=== PATIENT | male | born 1960 | race Caucasian/White ===

== ENCOUNTER 2016-07-11 11:18 | Emergency (ER) | payer MEDICARE ==
[2016-07-11] MEDS ORDERED: Sodium Chloride 0.9% 10 ML Syringe FLUSH PRN (12:41)
[2016-07-11] MEDS ORDERED: Ketorolac 30 MG/ML SDV IVPUSH ONE (12:42)
[2016-07-11] MEDS ORDERED: Cyclobenzaprine 10 MG Tab PO ONE (12:43)
[2016-07-11] MEDS ORDERED: Ondansetron 4 MG/2 ML SDV IVPUSH ONE (12:43)
--- NOTE | 2016-07-11 12:51 | EDM.PDOC ---
ED HPI GENERAL MEDICAL PROBLEM - General Chief Complaint: Back Pain or Injury Stated Complaint: KIDNEY PAIN Time Seen by Provider: 07/11/16 12:30 Source of Information: Reports: Patient History Limitations: Reports: No limitations - History of Present Illness INITIAL COMMENTS - FREE TEXT/NARRATIVE: c/o back pain x 3h on disability for chronic back pain, states he takes no pain meds except gabapentin altho MPMP shows a fill of Dilaudid on 06-04-16 on gabapentin 300 mg tid x 2m, takes no other pain meds walked dog today, got home and sat down and had sharp pain in his R lower back, "never had a pain like that", "the worst pain I have ever had", took no meds for it says it feels like his a sharp knife is being pushed through his back without radiation, also with pain across his upper abd which he says feels like his pancreas has had appy, choly, and AAA repair here with s.o. back/stomach Pain Score (Numeric/FACES): 10 - Related Data Allergies Allergy/AdvReac Type Severity Reaction Status Date / Time chanix Allergy Seizure Uncoded 07/11/16 11:42 Home Meds: Home Meds ARIPiprazole [Abilify] 10 mg PO DAILY 07/11/16 [History] Gabapentin [Neurontin] 300 mg PO TID 07/11/16 [History] Gemfibrozil 600 mg PO BID 07/11/16 [History] Lisinopril/Hydrochlorothiazide [Lisinopril-Hctz 20-12.5 mg Tab] 1 tab PO DAILY 07/11/16 [History] Metoprolol Succinate 100 mg PO DAILY 07/11/16 [History] Omeprazole 20 mg PO DAILY 07/11/16 [History] PARoxetine HCl [Paroxetine HCl] 40 mg PO DAILY 07/11/16 [History] clonazePAM [Clonazepam] 1 mg PO TID 07/11/16 [History] Social & Family History - Tobacco Use Years of Tobacco use: 35 ED ROS GENERAL - Review of Systems Review Of Systems: See Below Constitutional: Reports: no symptoms HEENT: Reports: No symptoms Respiratory: Reports: no symptoms Cardiovascular: Reports: No symptoms Endocrine: Reports: no symptoms GI/Abdominal: Reports: Abdominal pain, Nausea : Reports: no symptoms Musculoskeletal: Reports: back pain Skin: Reports: no symptoms Neurological: Reports: no symptoms Psychiatric: Reports: No symptoms Hematologic/Lymphatic: Reports: no symptoms Immunologic: Reports: no symptoms ED EXAM, GENERAL - Physical Exam Exam: See Below Exam Limited By: No limitations General Appearance: alert, WD/WN, no apparent distress Nose: normal inspection Throat/Mouth: Normal inspection, Normal lips Head: atraumatic, normocephalic Neck: normal inspection, supple, non-tender, full range of motion Respiratory/Chest: no respiratory distress, lungs clear, normal breath sounds, no accessory muscle use, chest non-tender Cardiovascular: normal peripheral pulses, regular rate, rhythm, no edema, no gallop, no rub, other (2/6 ANGELO at LSB) GI/Abdominal: other (well healed scar in RLQ and vertical scar to L of umbilicus , nl BS x 4, soft, nonspecific tender across upper quadrants, NT elsewhere, no guard/rebound, back no CVAT, does have mild tender in the R lower mid back but not at iliac crest, back NT to percussion, no spasm, l-spine NT, SI joints NT, SLR 45 degrees b/l neg, 2+ DTRs patella) Neurological: alert, oriented, CN II-XII intact, normal cognition, normal reflexes, no motor/sensory deficits Psychiatric: normal affect, normal mood Skin Exam: Warm, Dry, Intact, Normal color, No rash Lymphatic: no adenopathy Course - Vital Signs Last Recorded V/S: Last Vital Signs Temp 36.6 C 07/11/16 11:30 Pulse 58 L 07/11/16 11:30 Resp 18 07/11/16 11:30 BP 163/100 H 07/11/16 11:30 Pulse Ox 96 07/11/16 11:30 - Orders/Labs/Meds Orders: Active Orders 24 hr Category Date Time Status Abdomen Pelvis w wo Cont [CT] Stat Exams 07/11/16 12:44 Taken LIPASE [REF] Stat Lab 07/11/16 12:45 Received Sodium Chloride 0.9% [Saline Flush] Med 07/11/16 12:41 Active 10 ml FLUSH ASDIRECTED PRN Saline Lock Insert [OM.PC] Routine Oth 07/11/16 12:41 Ordered Medication Orders Sodium Chloride (Saline Flush) 10 ml FLUSH ASDIRECTED PRN PRN Reason: Keep Vein Open Last Admin: 07/11/16 12:55 Dose: 10 ml Labs: Laboratory Tests 07/11/16 07/11/16 07/11/16 Range/Units 12:45 12:45 13:15 WBC 12.7 H (4.5-12.0) X10-3/uL RBC 5.49 (4.30-5.75) x10(6)uL Hgb 17.3 H (11.5-15.5) g/dL Hct 51.6 H (30.0-51.3) % MCV 93.9 (80-96) fL MCH 31.6 (27.7-33.6) pg MCHC 33.6 (32.2-35.4) g/dL RDW 13.6 (11.5-15.5) % Plt Count 183 (125-369) X10(3)uL MPV 7.8 (7.4-10.4) fL Neut % (Auto) 80.2 (46-82) % Lymph % (Auto) 14.5 (13-37) % Bull[place] % (Auto) 4.6 (4-12) % Eos % (Auto) 0 L (1.0-5.0) % Baso % (Auto) 0 (0-2) % Neut # 10.2 H (1.6-8.3) # Lymph # 1.8 (0.6-5.0) # Bullitt # 0.6 (0.0-1.3) # Eos # 0.1 (0.0-0.8) # Baso # 0.0 (0.0-0.2) # Sodium 136 (135-145) mmol/L Potassium 3.4 L (3.5-5.3) mmol/L Chloride 102 (100-110) mmol/L Carbon Dioxide 28 (23-29) mmol/L BUN 11 (5-20) mg/dL Creatinine 1.0 (0.6-1.3) mg/dL Est Cr Clr Drug Dosing TNP Estimated GFR (MDRD) > 60 (>60) BUN/Creatinine Ratio 11.0 (9-20) Glucose 123 H (80-116) mg/dL Calcium 9.1 (8.6-10.2) mg/dL Total Bilirubin 0.9 (0.1-1.3) mg/dL AST 19 (5-27) IU/L ALT 15 (14-26) IU/L Alkaline Phosphatase 74 (56-112) IU/L C-Reactive Protein 0.8 (0.0-1.0) mg/dL Total Protein 7.8 (6.0-8.0) g/dL Albumin 4.1 (3.5-5.2) g/dL Globulin 3.7 g/dL Albumin/Globulin Ratio 1.1 Amylase 50 (28-100) U/L Urine Color Yellow (YELLOW) Urine Appearance Clear (CLEAR) Urine pH 5.0 (5.0-6.5) Ur Specific [place] 1.020 (1.010-1.025) Urine Protein Negative (NEGATIVE) mg/dL Urine Glucose (UA) Normal (NEGATIVE) mg/dL Urine Ketones Negative (NEGATIVE) mg/dL Urine Occult Blood Negative (NEGATIVE) Urine Nitrite Negative (NEGATIVE) Urine Bilirubin Negative (NEGATIVE) Urine Urobilinogen Normal (NEGATIVE) mg/dL Ur Leukocyte Esterase Negative (NEGATIVE) Urine RBC 0-5 (0) Urine WBC 0-5 (0) Ur Squamous Epith Cells Rare (NS,R,O) Urine Bacteria Rare H (NS) Urine Mucus Moderate H (NS) Meds: Medications Generic Name Dose Route Start Last Admin Trade Name Freq PRN Reason Stop Dose Admin Sodium Chloride 10 ml 07/11/16 12:41 07/11/16 12:55 Saline Flush FLUSH 10 ml ASDIRECTED PRN Administration Keep Vein Open Discontinued Medications Generic Name Dose Route Start Last Admin Trade Name Freq PRN Reason Stop Dose Admin Cyclobenzaprine HCl 10 mg 07/11/16 12:43 07/11/16 12:50 Flexeril PO 07/11/16 12:44 10 mg ONETIME ONE Administration Iopamidol 100 ml 07/11/16 13:26 07/11/16 13:36 Isovue-370 (76%) IV 07/11/16 13:27 100 ml . DIRECTED ONE Administration Ketorolac Tromethamine 30 mg 07/11/16 12:42 07/11/16 13:00 Toradol IVPUSH 07/11/16 12:43 30 mg ONETIME ONE Administration Ondansetron HCl 4 mg 07/11/16 12:43 07/11/16 13:00 Zofran IVPUSH 07/11/16 12:44 4 mg ONETIME ONE Administration Potassium Chloride 40 meq 07/11/16 13:59 Klor-Con M20 PO 07/11/16 14:00 ONETIME ONE Departure - Departure Time of Disposition: 15:26 Disposition: Home, Self-Care 01 Condition: good Clinical Impression: Low back sprain Forms: ED Department Discharge Additional Instructions: Continue your gabapentin 300 mg 1 tab 3 times a day. Add ibuprofen 200 mg 3 tabs and acetaminophen 325 mg 2 tabs 4 times a day for 1 week. Use heat on your back for 15 minutes 3 times a day. Sleep on a firm mattress. See your doctor in 2 days to recheck your back and your blood pressure. Check your blood pressure 1-2 times a day in the meantime. Call your Physician or Return to Emergency Department if: * Your condition worsens in any way. * You develop fever greater than 100.4. * You have vomiting that does not stop with medications. * You have pain that is not controlled with medications. - My Orders Last 24 Hours: My Active Orders 07/11/16 12:41 Sodium Chloride 0.9% [Saline Flush] 10 ml FLUSH ASDIRECTED PRN Saline Lock Insert [OM.PC] Routine 07/11/16 12:44 Abdomen Pelvis w wo Cont [CT] Stat 07/11/16 12:45 LIPASE [REF] Stat - Assessment/Plan Last 24 Hours: My Active Orders 07/11/16 12:41 Sodium Chloride 0.9% [Saline Flush] 10 ml FLUSH ASDIRECTED PRN Saline Lock Insert [OM.PC] Routine 07/11/16 12:44 Abdomen Pelvis w wo Cont [CT] Stat 07/11/16 12:45 LIPASE [REF] Stat
[2016-07-11] MEDS ORDERED: Iopamidol 755 Mg/ML 100 ML Bottle IV ONE (13:26)
[2016-07-11] MEDS ORDERED: Potassium Chloride 20 MEQ Tab.ER PO ONE (13:59)
[2016-07-11 19:12] VITALS: BP 143/100
== END 2016-07-11 15:28 | disposition home or self-care (01) ==
LOC: FB.ED 11:18
DX: S33.5XXA Sprain of ligaments of lumbar spine, initial encounter (principal); X50.1XXA Overexertion from prolonged static or awkward postures, initial encounter; M54.9 Dorsalgia, unspecified; G89.29 Other chronic pain; F17.200 Nicotine dependence, unspecified, uncomplicated; Z88.8 Allergy status to other drugs, medicaments and biological substances; Z79.899 Other long term (current) drug therapy
CPT/HCPCS: 74178; 80053; 81001; 82150; 83690; 85025; 86140; 96374; 96375; 99284; A9270; J1885; J2405; J7050; Q9967; 36415

== ENCOUNTER 2017-07-31 21:24 | Emergency (ER) | payer MEDICARE ==
[2017-07-31 21:29] VITALS: BP 199/122
[2017-07-31] MEDS ORDERED: Sodium Chloride 0.9% 10 ML Syringe FLUSH PRN ×2 (21:32→22:10)
[2017-07-31] MEDS ORDERED: Morphine 4 MG/ML Syringe IVPUSH ONE ×2 (21:44→22:07)
[2017-07-31] MEDS ORDERED: Ondansetron 4 MG/2 ML SDV IVPUSH ONE (21:44)
[2017-07-31] MEDS ORDERED: Sodium Chloride 0.9% 1,000 ML IV STA (22:19)
--- NOTE | 2017-07-31 22:33 | EDM.PDOC ---
ED HPI GENERAL MEDICAL PROBLEM - General Chief Complaint: Abdominal Pain Stated Complaint: ABD PAIN Time Seen by Provider: 07/31/17 21:28 Source of Information: Reports: Patient, Family History Limitations: Reports: Other (abdominal pain) - History of Present Illness INITIAL COMMENTS - FREE TEXT/NARRATIVE: 57 y.o.w.m with h/o/ HTN. H/O AAA, CAD, came to the ed with his family by wheelchair due to acute onset of abd. pain with distension, with nause and vomiting X2 and diarrhea. AAA was repaired 07/2016 at [place]. No Trauma. Primary survey showed a 57 y.o.w.m with acute abddominal pain with distension. No BS were audible. A mass 15 cm at his LUQ of his Abd was was palpated, ge had 3+ femoral arterial pulses. His BP was 199/120 HR was 64 Temp was 36.8 O2 sat was 96% on RA RR was 18 Blader scan showed 132 cc of urine in his bladder, 2 peripheral I.Vs were placed. Onset Date: 07/30/17 Onset Time: 18:00 Duration: Hour(s):, Getting Worse, Intermittent Location: Reports: Abdomen Quality: Reports: Ache, Burning, Dull, Pressure, Stabbing, Throbbing Severity: Severe Improves with: Reports: Medication, Rest Worsens with: Reports: Movement Context: Reports: Other (AAA, CAD) Associated Symptoms: Reports: Nausea/Vomiting Abdominal Pain Score (Numeric/FACES): 10 - Related Data Allergies Allergy/AdvReac Type Severity Reaction Status Date / Time chanix Allergy Seizure Uncoded 07/31/17 21:26 Home Meds: Home Meds ARIPiprazole [Abilify] 10 mg PO DAILY 07/11/16 [History] Gabapentin [Neurontin] 300 mg PO TID 07/11/16 [History] Gemfibrozil 600 mg PO BID 07/11/16 [History] Lisinopril/Hydrochlorothiazide [Lisinopril-Hctz 20-12.5 mg Tab] 1 tab PO DAILY 07/11/16 [History] Metoprolol Succinate 100 mg PO DAILY 07/11/16 [History] Omeprazole 20 mg PO DAILY 07/11/16 [History] PARoxetine HCl [Paroxetine HCl] 40 mg PO DAILY 07/11/16 [History] clonazePAM [Clonazepam] 1 mg PO TID 07/11/16 [History] Past Medical History Cardiovascular History: Reports: Aneurysm, Bypass, Hypertension, Stents Musculoskeletal History: Reports: Back Pain, Chronic Other Musculoskeletal History: chronic pain Social & Family History - Tobacco Use Smoking Status *Q: Current Every Day Smoker Years of Tobacco use: 35 Packs/Tins Daily: 1 - Caffeine Use Caffeine Use: Reports: Coffee - Recreational Drug Use Recreational Drug Use: No ED ROS GENERAL - Review of Systems Review Of Systems: See Below Constitutional: Reports: Decreased Appetite HEENT: Reports: No Symptoms Respiratory: Reports: No Symptoms Cardiovascular: Reports: No Symptoms Endocrine: Reports: No Symptoms GI/Abdominal: Reports: Abdominal Pain, Diarrhea, Nausea, Vomiting : Reports: No Symptoms Musculoskeletal: Reports: No Symptoms Skin: Reports: No Symptoms Neurological: Reports: No Symptoms Psychiatric: Reports: No Symptoms Hematologic/Lymphatic: Reports: No Symptoms Immunologic: Reports: No Symptoms ED EXAM, GI/ABD - Physical Exam Exam: See Below Exam Limited By: Other (abd. pain/distension) General Appearance: Alert, WD/WN, Moderate Distress, Obese Eyes: Bilateral: Normal Appearance Ears: Normal External Exam Nose: Normal Inspection Throat/Mouth: Normal Inspection, Normal Lips, No Airway Compromise Head: Atraumatic, Normocephalic Neck: Normal Inspection, Supple, Non-Tender, Full Range of Motion Respiratory/Chest: No Respiratory Distress, Lungs Clear, Normal Breath Sounds, Chest Non-Tender Cardiovascular: Normal Peripheral Pulses, Regular Rate, Rhythm, No Edema, No Gallop, No JVD, No Murmur, No Rub GI/Abdominal Exam: Distended, Guarding, Rigid, Rebound, Tender, Abnormal Bowel Sounds, Mass (Male) Exam: Normal Inspection Rectal (Males) Exam: Deferred Back Exam: Normal Inspection, Full Range of Motion Extremities: Normal Inspection, Normal Range of Motion, Non-Tender, No Pedal Edema, Normal Capillary Refill Neurological: Alert, Oriented, CN II-XII Intact, Normal Cognition, Abnormal Gait (came in the the ed by wheelchair) Psychiatric: Normal Affect, Normal Mood Skin Exam: Warm, Dry, Intact, Normal Color, No Rash Lymphatic: No Adenopathy EKG INTERPRETATION EKG Date: 07/31/17 Time: 21:50 Rhythm: NSR Rate (Beats/Min): 64 [place]: Normal P-Wave: Present QRS: Normal ST-T: Normal QT: Normal Comparison: NA - No Prior EKG Course - Vital Signs Text/Narrative:: 57 y.o.w.m with h/o/ HTN. H/O AAA, CAD, came to the ed with his family by wheelchair due to acute onset of abd. pain with distension, with nause and vomiting X2 and diarrhea. AAA was repaired 07/2016 at [place]. No Trauma. Primary survey showed a 57 y.o.w.m with acute abddominal pain with distension. No BS were audible. A mass 15 cm at his LUQ of his Abd was was palpated, ge had 3+ femoral arterial pulses. His BP was 199/120 HR was 64 Temp was 36.8 O2 sat was 96% on RA RR was 18 Blader scan showed 132 cc of urine in his bladder, 2 peripheral I.Vs were placed. PE: 57 y.o.w.m with acute abdomen (no audible BS, with rebound/guarding)with distension and Mass left upper abdominal wall, palpable femoral artery pulse on both sides Labs: WBC 17.1 Cr. 2.1 (1.0) GFR 33 (60) Nl LFTs HGB 14.4 INR 1.03 Imaging: U/S attempted but not obtainable due to body habitus. CT abd/pelvis, no contrast: Stable AAA, Abdominal Wall Hematoma [id number] cm Impression: Abdominal wall hematoma, acute renal failure, Hypertension, H/O AAA 2016, H/O CAD with 4 stents placed 2005. Tx: 2 peripheral I.Vs. Morphine 8 mg Dilaudid 2 mg, NS, Zofran. 2 liter O2 by [place] 11.[address] Jose, Surgeon: Call [place] 11.[address] Patel, Surgeon, [facility]: Accepted for Pt for transfer and further care Plan: Transfer to [facility] by EMS, family was present. Last Recorded V/S: Last Vital Signs Temp 36.4 C 07/31/17 21:28 Pulse 61 07/31/17 21:28 Resp 18 07/31/17 21:28 BP 199/122 H 07/31/17 21:28 Pulse Ox 96 07/31/17 21:28 - Orders/Labs/Meds Orders: Active Orders 24 hr Category Date Time Status Bladder Scan [RC] ONETIME Care 07/31/17 22:00 Active EKG Documentation Completion [RC] ASDIRECTED Care 07/31/17 21:35 Active Oxygen Therapy [RC] ASDIRECTED Care 08/01/17 00:37 Active Abdomen Pelvis w Cont [CT] Stat Exams 07/31/17 22:08 Taken UA W/MICROSCOPIC [URIN] Stat Lab 07/31/17 21:32 Ordered Peripheral IV Insertion Adult [OM.PC] Routine Oth 07/31/17 21:32 Ordered Peripheral IV Insertion Adult [OM.PC] Routine Oth 07/31/17 22:10 Ordered EKG 12 Lead [EK] Routine Ther 07/31/17 21:35 Ordered Labs: Laboratory Tests 07/31/17 07/31/17 07/31/17 Range/Units 21:40 21:40 21:40 WBC 17.8 H (4.5-12.0) X10-3/uL RBC 4.79 (4.30-5.75) x10(6)uL Hgb 15.4 (11.5-15.5) g/dL Hct 46.1 (30.0-51.3) % MCV 96.2 H (80-96) fL MCH 32.1 (27.7-33.6) pg MCHC 33.4 (32.2-35.4) g/dL RDW 14.4 (11.5-15.5) % Plt Count 158 (125-369) X10(3)uL MPV 7.6 (7.4-10.4) fL Add Manual Diff Yes Neutrophils % (Manual) 78 (46-82) % Band Neutrophils % 3 (0-6) % Lymphocytes % (Manual) 13 (13-37) % Monocytes % (Manual) 6 (4-12) % PT 10.4 (8.7-11.1) INR 1.03 (0.89-1.13) Sodium 135 (135-145) mmol/L Potassium 4.3 (3.5-5.3) mmol/L Chloride 99 L (100-110) mmol/L Carbon Dioxide 22 (21-32) mmol/L BUN 28 H (7-18) mg/dL Creatinine 2.1 H* (0.70-1.30) mg/dL Est Cr Clr Drug Dosing 39.75 mL/min Estimated GFR (MDRD) 33 L (>60) BUN/Creatinine Ratio 13.3 (9-20) Glucose 300 H (80-116) mg/dL Calcium 9.2 (8.6-10.2) mg/dL Total Bilirubin 0.5 (0.1-1.3) mg/dL Direct Bilirubin 0.09 L (0.10-0.20) mg/dL AST 23 (5-25) IU/L ALT 23 (12-36) U/L Alkaline Phosphatase 91 (56-112) IU/L Troponin I (<0.017-0.056) ng/mL NT-Pro-B Natriuret Pep (<=125) pg/mL Total Protein 7.8 (6.0-8.0) g/dL Albumin 3.5 (3.5-5.2) g/dL Amylase 66 (25-115) U/L 07/31/17 Range/Units 21:40 WBC (4.5-12.0) X10-3/uL RBC (4.30-5.75) x10(6)uL Hgb (11.5-15.5) g/dL Hct (30.0-51.3) % MCV (80-96) fL MCH (27.7-33.6) pg MCHC (32.2-35.4) g/dL RDW (11.5-15.5) % Plt Count (125-369) X10(3)uL MPV (7.4-10.4) fL Add Manual Diff Neutrophils % (Manual) (46-82) % Band Neutrophils % (0-6) % Lymphocytes % (Manual) (13-37) % Monocytes % (Manual) (4-12) % PT (8.7-11.1) INR (0.89-1.13) Sodium (135-145) mmol/L Potassium (3.5-5.3) mmol/L Chloride (100-110) mmol/L Carbon Dioxide (21-32) mmol/L BUN (7-18) mg/dL Creatinine (0.70-1.30) mg/dL Est Cr Clr Drug Dosing mL/min Estimated GFR (MDRD) (>60) BUN/Creatinine Ratio (9-20) Glucose (80-116) mg/dL Calcium (8.6-10.2) mg/dL Total Bilirubin (0.1-1.3) mg/dL Direct Bilirubin (0.10-0.20) mg/dL AST (5-25) IU/L ALT (12-36) U/L Alkaline Phosphatase (56-112) IU/L Troponin I 0.025 (<0.017-0.056) ng/mL NT-Pro-B Natriuret Pep 374 H (<=125) pg/mL Total Protein (6.0-8.0) g/dL Albumin (3.5-5.2) g/dL Amylase (25-115) U/L Meds: Medications Discontinued Medications Generic Name Dose Route Start Last Admin Trade Name Freq PRN Reason Stop Dose Admin Hydromorphone HCl 1 mg 07/31/17 22:36 07/31/17 22:39 Dilaudid IVPUSH 07/31/17 22:37 1 mg ONETIME ONE Administration Hydromorphone HCl 1 mg 07/31/17 22:58 07/31/17 23:01 Dilaudid IVPUSH 07/31/17 22:59 1 mg ONETIME ONE Administration Hydromorphone HCl 2 mg 08/01/17 00:10 08/01/17 00:39 Dilaudid IVPUSH 08/01/17 00:11 Not Given ONETIME ONE Sodium Chloride 1,000 mls @ 125 mls/hr 07/31/17 22:19 07/31/17 22:29 Normal Saline IV 08/01/17 06:18 125 mls/hr ASDIRECTED STA Administration Labetalol HCl 10 mg 08/01/17 00:03 Normodyne IVPUSH 08/01/17 00:04 ONETIME ONE Protocol Labetalol HCl 20 mg 08/01/17 00:04 08/01/17 00:06 Normodyne IVPUSH 08/01/17 00:05 20 mg ONETIME ONE Administration Protocol Morphine Sulfate 4 mg 07/31/17 21:44 07/31/17 21:48 Morphine IVPUSH 07/31/17 21:45 4 mg ONETIME ONE Administration Morphine Sulfate 4 mg 07/31/17 22:07 07/31/17 22:10 Morphine IVPUSH 07/31/17 22:08 4 mg ONETIME ONE Administration Ondansetron HCl 8 mg 07/31/17 21:44 07/31/17 21:47 Zofran IVPUSH 07/31/17 21:45 8 mg ONETIME ONE Administration Sodium Chloride 10 ml 07/31/17 21:32 07/31/17 21:45 Saline Flush FLUSH 10 ml ASDIRECTED PRN Administration Keep Vein Open Sodium Chloride 10 ml 07/31/17 22:10 Saline Flush FLUSH ASDIRECTED PRN Keep Vein Open Departure - Departure Time of Disposition: 23:49 Disposition: DC/Tfer to [facility] Access [facility] Condition: Fair Clinical Impression: Acute renal failure, Hypertension Abdominal wall hematoma Qualifiers: Encounter type: initial encounter Qualified Code(s): S30.1XXA - Contusion of abdominal wall, initial encounter CAD (coronary artery disease) Qualifiers: Coronary Disease-Associated Artery/Lesion type: unspecified vessel or lesion type - Discharge Information Referrals: Rommel Griffin MD [Primary Care Provider] - Forms: ED Department Discharge - My Orders Last 24 Hours: My Active Orders 07/31/17 21:32 UA W/MICROSCOPIC [URIN] Stat Peripheral IV Insertion Adult [OM.PC] Routine 07/31/17 21:35 EKG Documentation Completion [RC] ASDIRECTED EKG 12 Lead [EK] Routine 07/31/17 22:00 Bladder Scan [RC] ONETIME 07/31/17 22:08 Abdomen Pelvis w Cont [CT] Stat 07/31/17 22:10 Peripheral IV Insertion Adult [OM.PC] Routine 08/01/17 00:37 Oxygen Therapy [RC] ASDIRECTED - Assessment/Plan Last 24 Hours: My Active Orders 07/31/17 21:32 UA W/MICROSCOPIC [URIN] Stat Peripheral IV Insertion Adult [OM.PC] Routine 07/31/17 21:35 EKG Documentation Completion [RC] ASDIRECTED EKG 12 Lead [EK] Routine 07/31/17 22:00 Bladder Scan [RC] ONETIME 07/31/17 22:08 Abdomen Pelvis w Cont [CT] Stat 07/31/17 22:10 Peripheral IV Insertion Adult [OM.PC] Routine 08/01/17 00:37 Oxygen Therapy [RC] ASDIRECTED
[2017-07-31] MEDS ORDERED: HYDROmorphone 2 MG/ML SDV IVPUSH ONE ×2 (22:36→22:58)
[2017-08-01] MEDS ORDERED: Labetalol 20 MG/4 ML Syringe IVPUSH ONE ×2 (00:03→00:04)
[2017-08-01] MEDS ORDERED: HYDROmorphone 2 MG/ML SDV IVPUSH ONE (00:10)
== END 2017-08-01 00:15 | disposition critical access hospital (66) ==
LOC: FB.ED 21:24
DX: N17.9 Acute kidney failure, unspecified (principal); M79.81 Nontraumatic hematoma of soft tissue; I10 Essential (primary) hypertension; I25.10 Atherosclerotic heart disease of native coronary artery without angina pectoris; Z86.79 Personal history of other diseases of the circulatory system; F17.210 Nicotine dependence, cigarettes, uncomplicated; Z79.899 Other long term (current) drug therapy; Z88.8 Allergy status to other drugs, medicaments and biological substances
CPT/HCPCS: 36415; 51798; 74177; 80048; 80076; 82150; 83880; 84484; 85025; 85610; 93005; 96361; 96374; 96375; 99285; J1170; J2270; J2405; J7040; J7050